=== PATIENT | female | born 1970 | race Native Hawaiian/Other Pacific Islander ===

== ENCOUNTER 2018-04-24 12:40 | Outpatient (CLI) | payer OTHER | END 2018-04-24 19:54 | disposition home or self-care (01) | LOC: LABW 12:40 | DX: R05 Cough (principal) | CPT/HCPCS: 87070; 87077; 87186; 87205 ==

== ENCOUNTER 2018-11-07 22:07 | Emergency (ER) | payer OTHER ==
[~2018-11-07] VITALS: Ht 165.1 cm; Wt 115.2 kg
[2018-11-07 23:23] LABS: PLATELET COUNT 299 K/uL (152-353)
[2018-11-07 23:25] LABS: POTASSIUM 4.2 mmol/L (3.6-5.2)
[2018-11-08 00:15] VITALS: BP 152/100; TEMP 97.7
== END 2018-11-08 00:28 | disposition home or self-care (01) ==
LOC: ED 22:16
PROVIDERS: Emergency Medicine
DX: N23 Unspecified renal colic (principal)
CPT/HCPCS: 36415; 80053; 81000; 85027; 96360; 96375; 99284; J1885; J2175; J2405

== ENCOUNTER 2019-02-12 10:50 | Outpatient (CLI) | payer OTHER | END 2019-02-12 20:31 | disposition home or self-care (01) | LOC: MRI 10:50 | DX: M54.17 Radiculopathy, lumbosacral region (principal) ==

== ENCOUNTER 2019-03-06 09:32 | Day surgery (SDC) | payer OTHER ==
[~2019-03-06] VITALS: Ht 165.1 cm; Wt 111.1 kg
== END 2019-03-06 12:30 | disposition home or self-care (01) ==
LOC: OR 09:32
PROC: 3E0R33Z Introduction of Anti-inflammatory into Spinal Canal, Percutaneous Approach (ICD-10-PCS; principal; 2019-03-06)
PROC: 3E0R3BZ Introduction of Anesthetic Agent into Spinal Canal, Percutaneous Approach (ICD-10-PCS; 2019-03-06)
PROC: B01BYZZ Fluoroscopy of Spinal Cord using Other Contrast (ICD-10-PCS; 2019-03-06)
DX: M51.16 Intervertebral disc disorders with radiculopathy, lumbar region (principal)
CPT/HCPCS: J1020; J2001; J2270

== ENCOUNTER 2019-04-02 08:14 | Day surgery (SDC) | payer OTHER ==
[~2019-04-02] VITALS: Ht 30.5 cm; Wt 0.5 kg
== END 2019-04-02 10:38 | disposition home or self-care (01) ==
LOC: OR 08:14
PROC: 3E0R33Z Introduction of Anti-inflammatory into Spinal Canal, Percutaneous Approach (ICD-10-PCS; principal; 2019-04-02)
PROC: B01BYZZ Fluoroscopy of Spinal Cord using Other Contrast (ICD-10-PCS; 2019-04-02)
DX: M51.17 Intervertebral disc disorders with radiculopathy, lumbosacral region (principal)
CPT/HCPCS: J1020

== ENCOUNTER 2020-06-16 08:49 | Day surgery (SDC) | payer OTHER ==
[~2020-06-16] VITALS: Ht 30.5 cm; Wt 0.5 kg
== END 2020-06-16 11:10 | disposition home or self-care (01) ==
LOC: OR 08:49
PROC: 3E0R33Z Introduction of Anti-inflammatory into Spinal Canal, Percutaneous Approach (ICD-10-PCS; principal; 2020-06-16)
PROC: B01BYZZ Fluoroscopy of Spinal Cord using Other Contrast (ICD-10-PCS; 2020-06-16)
DX: M51.16 Intervertebral disc disorders with radiculopathy, lumbar region (principal)
CPT/HCPCS: J1020

== ENCOUNTER 2021-08-16 10:22 | Outpatient (CLI) | payer OTHER | END 2021-08-16 21:01 | disposition home or self-care (01) | LOC: MAMMO 10:22 | PROVIDERS: ATTEND Internal Medicine | DX: Z12.31 Encounter for screening mammogram for malignant neoplasm of breast (principal); Z13.820 Encounter for screening for osteoporosis; N95.8 Other specified menopausal and perimenopausal disorders ==

== ENCOUNTER 2021-09-08 09:18 | Outpatient (CLI) | payer OTHER | END 2021-09-08 19:44 | disposition home or self-care (01) | LOC: MAMMO 09:18 | PROVIDERS: ATTEND Internal Medicine | DX: Z12.31 Encounter for screening mammogram for malignant neoplasm of breast (principal); N64.59 Other signs and symptoms in breast ==

== ENCOUNTER 2021-11-04 11:39 | Outpatient (CLI) | payer OTHER | END 2021-11-04 19:14 | disposition home or self-care (01) | LOC: RAD 11:39 | PROVIDERS: ATTEND Internal Medicine | DX: M25.511 Pain in right shoulder (principal); M25.521 Pain in right elbow ==

== ENCOUNTER 2022-07-03 11:18 | Emergency (ER) | payer OTHER ==
[~2022-07-03] VITALS: Ht 165.1 cm; Wt 120.7 kg
[2022-07-03 11:22] VITALS: BP 165/91; TEMP 97.9
== END 2022-07-03 14:25 | disposition home or self-care (01) ==
LOC: ED 11:18
DX: S80.01XA Contusion of right knee, initial encounter (principal); S40.012A Contusion of left shoulder, initial encounter; S50.811A Abrasion of right forearm, initial encounter; S50.11XA Contusion of right forearm, initial encounter; S80.812A Abrasion, left lower leg, initial encounter; W10.8XXA Fall (on) (from) other stairs and steps, initial encounter; Y93.K1 Activity, walking an animal; Y92.89 Other specified places as the place of occurrence of the external cause
CPT/HCPCS: 96372; 99283; J2175; J2405